=== PATIENT | male | born 1995 | race Caucasian/White ===

== ENCOUNTER 2019-01-16 21:22 | Emergency (ER) | payer SELFPAY ==
[2019-01-16 21:39] VITALS: BP 140/77
== END 2019-01-16 23:03 | disposition left against medical advice (07) ==
LOC: ED 21:22
DX: Z53.21 Procedure and treatment not carried out due to patient leaving prior to being seen by health care provider (principal); R42 Dizziness and giddiness; H53.8 Other visual disturbances
CPT/HCPCS: 93005; 99281

== ENCOUNTER 2019-01-17 23:47 | Emergency (ER) | payer SELFPAY ==
[2019-01-18] MEDS ORDERED: NS 0.9% 1000 ML** 1,000 ML IV ONE (01:25)
[2019-01-18 01:28] LABS: Urine Appearance Clear; Urine Bilirubin Negative (Negative); Urine Blood Negative (Negative); Urine Color Yellow; Urine Glucose Negative (Negative); Urine Ketones Negative (Negative); Urine Nitrite Negative (Negative); Urine Protein Negative (Negative); Urine Urobilinogen Negative (Negative)
--- NOTE | 2019-01-18 01:33 | ED ---
GI/ HPI - HPI Summary HPI Summary: This patient is a 23 year old M presenting to [facility] accompanied by significant other with a chief complaint of urgency of urination, coupled with inability to urinate since one week ago. Pt went to last sat for swollen lymph nodes in groin area, and then went back on and the found things in [place]. The last time patient urinated was after coming to ED, and before that was in the morning. Patient reports cloudy discharge occurring at 2200, and increased frequency of urination. - History of Current Complaint Chief Complaint: EDUrogenitalProblems Time Seen by Provider: 01/18/19 00:52 Stated Complaint: CANNOT URINATE PER PT Hx Obtained From: Patient Onset/Duration: Started Days Ago, Still Present Timing: Constant Severity: Severe Current Severity: Severe Pain Intensity: 8 Location of Pain: Diffuse Associated Signs and Symptoms: Positive: Discharge, Abdominal Pain Aggravating Factor(s): Nothing Alleviating Factor(s): Nothing - Allergy/Home Medications Allergies/Adverse Reactions: Allergies Allergy/AdvReac Type Severity Reaction Status Date / Time No Known Allergies Allergy Verified 01/16/19 21:40 PMH/Surg Hx/FS Hx/Imm Hx Sensory History: Denies: Hx Contacts or Glasses Opthamlomology History: Denies: Hx Contacts or Glasses EENT History: Denies: Hx Deafness Infectious Disease History: No Infectious Disease History: Denies: Traveled Outside the [place] in Last 30 Days - Family History Known Family History: Negative: Hypertension, Diabetes - Social History Occupation: Employed Full-time Alcohol Use: None Substance Use Type: Reports: None Smoking Status (MU): Never Smoked Tobacco Review of Systems Positive: Abdominal Pain Positive: discharge, frequency, urgency All Other Systems Reviewed And Are Negative: Yes Physical Exam - Summary Physical Exam Summary: General: thin MALE. No acute distress. HEENT: Normocephalic, Atraumatic. Eyes: Conjuctiva normal, PERRL. Ears: TMs within normal limits. Nares: (-) discharge, (-) erythema. Oropharynx: Clear, mucous membranes moist, (-) exudates. Neck: Soft, FROM, (-) lymphadenopathy, (-) thyromegaly, (-) JVD. Cardiovascular: Normal sinus rhythm, (-) murmur. Lungs: Clear to auscultation bilaterally (-) wheezes, (-) rales, (-) rhonchi. Abdomen: Soft, moderate supra pubic tenderness, non-distended, (-) organomegaly , normal bowel sounds. Back: (-) CVA tenderness Extremities: No edema. Skin: Warm, dry, (-) rash. Neuro: Alert and oriented x3, no focal deficits. Psychiatric: Mood normal, affect normal. Triage Information Reviewed: Yes Vital Signs On Initial Exam: Initial Vitals Temp Pulse Resp BP Pulse Ox 98.7 F 57 20 148/91 99 01/17/19 23:54 01/17/19 23:54 01/17/19 23:54 01/17/19 23:54 01/17/19 23:54 Vital Signs Reviewed: Yes Procedures - Sedation Patient Received Moderate/Deep Sedation with Procedure: No Diagnostics - Vital Signs Vital Signs Temp Pulse Resp BP Pulse Ox 01/17/19 23:54 98.7 F 57 20 148/91 99 - Laboratory Lab Results: Lab Results 01/18/19 Range/Units 00:02 Urine Color Yellow Urine Appearance Clear Urine pH 6.0 (5-9) Ur Specific [place] 1.020 (1.010-1.030) Urine Protein Negative (Negative) Urine Ketones Negative (Negative) Urine Blood Negative (Negative) Urine Nitrate Negative (Negative) Urine Bilirubin Negative (Negative) Urine Urobilinogen Negative (Negative) Ur Leukocyte Esterase Negative (Negative) Urine Glucose Negative (Negative) Urine Ascorbic Acid * A (Negative) Result Diagrams: 01/18/19 01:40 01/18/19 01:40 Lab Statement: Any lab studies that have been ordered have been reviewed, and results considered in the medical decision making process. Re-Evaluation - Re-Evaluation First Eval Re-Evaluation Time: 04:09 Comment: Discussed results with pt, and plan of care. GIGU Course/Dx - Course Course Of Treatment: 23 year old M presents with pressure when trying to urinate. He feels swollen in suprapubic area, and doesnt feel like he has been able to urinate well for about a week, Pt has seen physician for other reasons where this was discussed but not addressed, afebrile not vomiting. No fever or white count, urine normal appearing, bladder scan demonstrated less than 100 ml in pt upon arrival. Pt given 1 L IV fluids, and then was able to void 500 cc of urine freely and felt better. Pt advised to increase fluid intake, f/up with PCP. - Diagnoses Provider Diagnoses: Abdominal pain, Decreased urine output Discharge ED - Sign-Out/Discharge Documenting (check all that apply): Patient Departure - Discharge - Discharge Plan Condition: Stable Disposition: HOME Patient Education Materials: Abdominal Pain (ED) Referrals: Care [facility] [Outside] - 3 Days Additional Instructions: Please follow up with your primary care physician within three days. Please return to ED for any new or worsening symptoms. - Billing Disposition and Condition Condition: STABLE Disposition: Home - Attestation Statements Document Initiated by Svitlanaibe: Yes Documenting Scribe: Corie Soriano Provider For Whom Siddhartha is Documenting (Include Credential): Dr. Jud Patel MD Scribe Attestation: Corie Van scribed for Dr. Jud Patel MD on 01/18/19 at 0632. Scribe Documentation Reviewed: Yes Provider Attestation: The documentation as recorded by the Corie fischer accurately reflects the service I personally performed and the decisions made by , Dr. Jud Patel MD Status of Scribe Document: Viewed
[2019-01-18 01:45] LABS: Hematocrit 43 % (42-52); Hemoglobin 14.8 g/dL (14.0-18.0); Mean Corpuscular HGB Conc 34 g/dL (31-36); Mean Corpuscular Hemoglobin 31 pg (27-31); Mean Corpuscular Volume 92 fL (80-94); Mean Platelet Volume 9.9 fL (7.4-10.4); Platelet Count 145 10^3/uL (150-450); Red Blood Count 4.72 10^6 /uL (4.18-5.48); Red Cell Distribution Width 12 % (10-15); White Blood Count 8.8 10^3/uL (3.5-10.8)
[2019-01-18 01:47] LABS: ABS Eosinophils 0.5 10^3/ul (0-0.6); ABS Lymphocytes 3.3 10^3/ul (1.0-4.8); ABS Monocytes 0.6 10^3/ul (0-0.8); ABS Neutrophils 4.4 10^3/ul (1.5-7.7); Eosinophil % 5.8 %; Lymphocyte % 37.7 %; Nucleated Red Blood Cells % 0.1
[2019-01-18 02:04] LABS: Albumin 4.6 g/dL (3.2-5.2); Calcium 9.7 mg/dL (8.6-10.3); Potassium 4.9 mmol/L (3.5-5.0); Total Bilirubin 1.4 mg/dL (0.2-1.0)
[2019-01-18 02:11] LABS: Albumin/Globulin Ratio 1.8 (1-3); BUN/Creatinine Ratio 21.7 (8-20); EGFR African American 96.2 (>60); EGFR Non-African American 79.5 (>60); Globulin 2.6 g/dL (2-4); Total Protein 7.2 g/dL (6.4-8.9)
[2019-01-18 02:54] LABS: Large Platelets Present
[2019-01-18 04:28] VITALS: BP 130/77
[2019-01-19 13:51] LABS: Chlamydia trachomatis NAA Negative (Negative); Neisseria gonorrhoeae (GC) NAA Negative (Negative)
== END 2019-01-18 04:26 | disposition home or self-care (01) ==
LOC: ED 23:47
DX: R10.9 Unspecified abdominal pain (principal)
CPT/HCPCS: 36415; 80053; 81003; 83605; 85025; 87491; 87591; 96360; 99282